=== PATIENT | female | born 1965 | race Caucasian/White ===

== ENCOUNTER → 2023-03-25 15:12 | Outpatient (REF) | payer BC, SELFPAY | LOC: WDC 15:12 | PROVIDERS: ATTENDING PHYSICIAN Family Medicine | DX: Z12.31 Encounter for screening mammogram for malignant neoplasm of breast (principal) | CPT/HCPCS: 77063; 77067 ==

== ENCOUNTER → 2023-05-03 08:07 | Outpatient (REF) | payer OTHER, SELFPAY | LOC: RCS 08:07 | PROVIDERS: ATTENDING PHYSICIAN Internal Medicine Cardiovascular Disease; FAMILY PHYSICIAN Family Medicine | DX: R07.89 Other chest pain (principal); I10 Essential (primary) hypertension | CPT/HCPCS: 93306 ==

== ENCOUNTER → 2023-05-16 06:45 | Outpatient (REF) | payer BC, OTHER, SELFPAY ==
[2023-05-16] MEDS: LEXISCAN 0.400000000000000022 MG IV (08:30)
[2023-05-16] MEDS: FLUSH (NSS) 1 FLUSH IV (08:30)
[2023-05-16] MEDS: AMINOPHYLLINE 75 MG IV (09:20)
== END ==
LOC: RCS 06:45
PROVIDERS: ATTENDING PHYSICIAN Internal Medicine Cardiovascular Disease
DX: R07.89 Other chest pain (principal); I10 Essential (primary) hypertension
CPT/HCPCS: 78452; 93017; A9500; J2785

== ENCOUNTER → 2023-09-26 08:10 | Outpatient (REF) | payer BC, OTHER, SELFPAY ==
[2023-09-26 09:00] LABS: % Basophils 0.4 % (0-2); % Immature Granulocytes 0.3 % (0-0.5); % Lymphocytes 34.4 % (20.5-51.1); % Neutrophils 53.9 % (42.2-75.2); Absolute Eosinophils 0.2 10^3/uL (0-0.7); Absolute Lymphocytes 2.5 10^3/uL (1.2-3.4); Absolute Monocytes 0.7 10^3/uL (0.1-0.6); Hematocrit 41.8 % (37.0-47.0); Hemoglobin 14.5 g/dL (12.0-16.0); Mean Corp Hgb Conc. 34.7 g/dL (33.0-37.0); Mean Corpuscular Hgb 31.3 pg (27.0-31.0); Mean Corpuscular Volume 90.1 fL (81.0-99.0); Mean Platelet Volume 10.5 fL (7.4-10.4); Nucleated Red Blood Cells % 0 %; Platelet Count 307 10^3/uL (130-400); Red Blood Cell Count 4.64 10^6/uL (4.20-5.40); Red Cell Dist. Width 12.3 % (11.5-14.5); White Blood Cell Count 7.4 10^3/uL (4.8-10.8)
[2023-09-26 09:38] LABS: ALT (SGPT) 16 U/L (0-35); AST (SGOT) 24 U/L (14-36); Albumin 4.5 g/dl (3.5-5.0); Alkaline Phosphatase 88 U/L (38-126); Blood Urea Nitrogen 21 mg/dl (7-17); Calcium 9.5 mg/dl (8.4-10.2); Carbon Dioxide 23 mmol/L (22-30); Chloride 105 mmol/L (98-107); Glucose 96 mg/dl (70-99); HDL Cholesterol 58 mg/dl; LDL Cholesterol, Calculated 108 mg/dl; Potassium 4.5 mmol/L (3.5-5.1); Sodium 138 mmol/L (135-145); Total Bilirubin 0.7 mg/dl (0.2-1.3); Total Cholesterol 189 mg/dl (50-199); Total Protein 6.7 g/dl (6.3-8.2); Triglyceride 116 mg/dl (10-149); Very Low Density Lipoprotein 23 mg/dl (0-30); eGFR > 60.00
== END ==
LOC: REG 08:10
PROVIDERS: ATTENDING PHYSICIAN Family Medicine
DX: Z00.00 Encounter for general adult medical examination without abnormal findings (principal)
CPT/HCPCS: 36415; 80053; 80061; 84443; 85025

== ENCOUNTER → 2023-10-07 07:06 | Outpatient (REF) | payer OTHER, BC, SELFPAY | LOC: PAVMRI 07:06 | PROVIDERS: ATTENDING PHYSICIAN Specialist; FAMILY PHYSICIAN Family Medicine | DX: M25.562 Pain in left knee (principal); Z98.890 Other specified postprocedural states | CPT/HCPCS: 73721 ==

== ENCOUNTER 2024-01-28 21:12 | Emergency (ER) | payer BC, SELFPAY ==
[2024-01-28 21:12] VITALS: BMI 33.1
[2024-01-28 21:18] VITALS: BP 137/89
--- NOTE | 2024-01-28 21:19 | ED.GENMED ---
ED Provider Triage
<Dionna Yun PA-C - Last Filed: 01/28/24 21:22>
-
Patient seen by provider in Triage?: Seen in Triage
Attestation: A medical screening examination has been initiated by a qualified medical provider. Based on the assessment performed at this time, it has been determined that an emergent medical condition may exist and the patient has been informed
that further medical evaluation and possible additional diagnostic testing may be needed.
HPI: 58yoF here with a cough since Friday. Also having burning chest pain. [place]merer a rumbling in her chest today. Seen by PCP on Friday and diagnosed with bronchitis. Currently on prednisone x 2 days.
GENERAL: Alert , in no apparent distress
EYE: No visual abnormalities.
NECK: Trachea midline
ENT: No visible abnormalities.
LUNGS: No acute respiratory distress
NEUROLOGICAL: Alert and oriented
SKIN: Skin intact. No visible changes.
MUSCULOSKELETAL: Moving extremities normally
PSYCH: Normal and appropriate interaction.
This is a medical evaluation conducted in person to initiate diagnostic evaluation and provide initial therapeutics. Please see further documentation by the treating clinician.
Cardiac labs, EKG, COVID/flu swab, and CXR ordered.
History of Present Illness
<Dionna Yun PA-C - Last Filed: 01/28/24 21:22>
General
Chief Complaint: Breathing Problem
Time Seen by Provider: 01/28/24 22:13
<Gumaro Ríos DO - Last Filed: 01/29/24 02:03>
General
Source: patient
Exam Limitations: none
History of Present Illness
History of Present Illness:
This is a 58-year-old female presents with persistent cough. The patient states has been ongoing for almost a week. She did see her primary care doctor who advised and prescribed a Medrol Dosepak. Patient states the cough that she has been
persistent. She states her breathing is mostly okay but at times coughing and makes her feel out of breath. No fevers. This. No sputum production. No leg swelling. Does have a history of asthma.
Past History
<GE Blevins-C - Last Filed: 01/28/24 21:22>
Past History
ED Past Medical History: Other (Tendinitis, sciatica)
ED Past Surgical History: Orthopedic
Social History
Tobacco: Non-smoker
Alcohol: None
Drug: None
Personal:
Living: with family
<Gumaro Ríos DO - Last Filed: 01/29/24 02:03>
Past History
ED Past Medical History: Asthma and HTN
ED Past Surgical History:
Phy Exam
<Gumaro Ríos DO - Last Filed: 01/29/24 02:03>
Physical Exam
Physical Exam:
CONSTITUTIONAL Patient alert and oriented to person, place and time. Well-appearing. Vital signs reviewed.
HEAD atraumatic, normocephalic.
EYES eyelids normal to inspection, Extraocular muscles intact, Conjunctiva normal, Sclera normal.
NECK normal range of motion, Trachea midline, no jugular venous distention.
RESPIRATORY CHEST No respiratory distress noted, Chest expansion equal, end expiratory wheezing noted.
CARDIOVASCULAR regular rate and rhythm, Heart sounds normal.
ABDOMEN abdomen nontender, Bowel sounds normal. No distention.
BACK normal inspection, no obvious deformities
UPPER EXTREMITY range of motion normal, Motor strength normal, no cyanosis, no edema.
LOWER EXTREMITY range of motion normal, Motor strength normal, no cyanosis, no edema.
NEURO Speech normal, No focal motor deficits, Greer coma scale 15, Memory normal, Cranial Nerves intact to screening exam.
SKIN skin warm, dry, and normal in color.
Scores
<Gumaro Ríos DO - Last Filed: 01/29/24 02:03>
Heart Failure Risk
Heart Failure Risk Score: Not Applicable
Course
<Dionna Yun PA-C - Last Filed: 01/28/24 21:22>
Orders/Labs/Results
Orders:
Orders
01/28/24 21:20
Electrocardiogram (*1) Urgent
Reason for Study: Chest Pain
EKG- Treatment ONCE
CR Chest - 2 Views Urgent
Comment:
Reason For Exam: Cough
01/28/24 21:28
COVID-19 Antigen Urgent
Source: Nasal Swab
Complete Blood Count/With Diff Urgent
Comprehensive Metabolic Panel Urgent
Troponin I Urgent
Influenza A+B Rapid Molecular Urgent
JOSE C Source: Nasal Swab
Specimen Description:
01/28/24 22:39
Ipratropium/Albuterol Sulfate [Duoneb] 3 ml INH R NOW ONE
Ipratropium/Albuterol Sulfate [Duoneb] 3 ml INH R NOW STA
Ipratropium/Albuterol Sulfate [Duoneb] 3 ml INH R NOW STA
01/29/24 01:44
Ipratropium/Albuterol Sulfate [Duoneb] 3 ml INH R NOW STA
01/29/24 01:48
Azithromycin [Zithromax] 500 mg PO NOW STA
Abnormal Lab Results
01/28/24
21:28
WBC 11.4 H 10^3/uL
(4.8-10.8)
MCH 31.5 H pg
(27.0-31.0)
Abs Immat Gran (auto) 0.1 H 10^3/uL
(0-0.05)
Absolute Neuts (auto) 8.9 H 10^3/uL
(1.4-6.5)
Absolute Monos (auto) 0.8 H 10^3/uL
(0.1-0.6)
Neutrophils % 78.5 H %
(42.2-75.2)
Lymphocytes % 13.9 L %
(20.5-51.1)
BUN 18 H mg/dl
(7-17)
Glucose 143 H mg/dl
(70-99)
AST 40 H U/L
(14-36)
ALT 52 H U/L
(0-35)
01/28/24 21:28
01/28/24 21:28
Vital Signs
Initial and Last Documented VS:
Initial Vital Signs
Temp Pulse Resp BP Pulse Ox
98.3 F 79 16 137/89 98
01/28/24 21:18 01/28/24 21:18 01/28/24 21:18 01/28/24 21:18 01/28/24 21:18
Last Documented Vital Signs
Temp Pulse Resp BP Pulse Ox
98.3 F 98 12 139/78 99
01/28/24 21:18 01/28/24 23:45 01/28/24 23:45 01/28/24 23:07 01/28/24 23:45
<Gumaro Ríos, - Last Filed: 01/29/24 02:03>
Orders/Labs/Results
Orders:
Orders
01/28/24 21:20
Electrocardiogram (*1) Urgent
Reason for Study: Chest Pain
EKG- Treatment ONCE
CR Chest - 2 Views Urgent
Comment:
Reason For Exam: Cough
01/28/24 21:28
COVID-19 Antigen Urgent
Source: Nasal Swab
Complete Blood Count/With Diff Urgent
Comprehensive Metabolic Panel Urgent
Troponin I Urgent
Influenza A+B Rapid Molecular Urgent
JOSE C Source: Nasal Swab
Specimen Description:
01/28/24 22:39
Ipratropium/Albuterol Sulfate [Duoneb] 3 ml INH R NOW ONE
Ipratropium/Albuterol Sulfate [Duoneb] 3 ml INH R NOW STA
Ipratropium/Albuterol Sulfate [Duoneb] 3 ml INH R NOW STA
01/29/24 01:44
Ipratropium/Albuterol Sulfate [Duoneb] 3 ml INH R NOW STA
01/29/24 01:48
Azithromycin [Zithromax] 500 mg PO NOW STA
Abnormal Lab Results
01/28/24
21:28
WBC 11.4 H 10^3/uL
(4.8-10.8)
MCH 31.5 H pg
(27.0-31.0)
Abs Immat Gran (auto) 0.1 H 10^3/uL
(0-0.05)
Absolute Neuts (auto) 8.9 H 10^3/uL
(1.4-6.5)
Absolute Monos (auto) 0.8 H 10^3/uL
(0.1-0.6)
Neutrophils % 78.5 H %
(42.2-75.2)
Lymphocytes % 13.9 L %
(20.5-51.1)
BUN 18 H mg/dl
(7-17)
Glucose 143 H mg/dl
(70-99)
AST 40 H U/L
(14-36)
ALT 52 H U/L
(0-35)
01/28/24 21:28
01/28/24 21:28
Vital Signs
Initial and Last Documented VS:
Initial Vital Signs
Temp Pulse Resp BP Pulse Ox
98.3 F 79 16 137/89 98
01/28/24 21:18 01/28/24 21:18 01/28/24 21:18 01/28/24 21:18 01/28/24 21:18
Last Documented Vital Signs
Temp Pulse Resp BP Pulse Ox
98.3 F 98 12 139/78 99
01/28/24 21:18 01/28/24 23:45 01/28/24 23:45 01/28/24 23:07 01/28/24 23:45
<Gumaro Ríos DO - Last Filed: 01/29/24 02:03>
MDM/Problems Addressed
Differential Diagnosis Includes:
Pneumonia, bronchitis, asthma exacerbation, CHF
MDM/Problems Addressed:
Acute asthma exacerbation, bronchitis
<DO Marsha Roberson Last Filed: 01/29/24 02:03>
*Radiology
Radiology exam reviewed: all reviewed NAD by ED Provider
*Pulse Oximetry
Patient hypoxic: no
*EKG
Interpreted by ED Provider?: Yes
Interpretation: normal
Rate: normal
Rhythm: sinus
[employer]: normal axis
QRS Pattern: normal QRS
Ischemia: no ischemia
*[employer] Interpretation
Rate: normal
Interpretation: normal
Rhythm: sinus
*Critical Care Note
Total Time (30-74mins, 75-104mins- exclusive of procedures): Not Applicable
Data Reviewed
Source: patient
Prescriptions/Medications Considered But Not Given:
Considered more aggressive antibiotics but suspect acute bronchitis. Cover with azithromycin
<Gumaro Ríos DO - Last Filed: 01/29/24 02:03>
Patient Management
Escalation/DeEscalation of care consider admission/obs:
On reassessment feels better with some end-expiratory wheezing. Noted to feel proved on reassessment. Patient is in his pulse ox remains 90%. I do think it is reasonable for outpatient management. Will add inhaled steroids and extend course of
steroids. In addition add azithromycin and nebulizer machine. Patient will be discharged with nebulizer machine as she felt the delivery was better than her inhaler. I did recommend close PCP follow-up
ED Attending Note
<Dionna Yun PA-C - Last Filed: 01/28/24 21:22>
-
Portions of this chart may have been created with voice recognition software.� Occasional wrong word or��sound alike� substitutions may have occurred due to the inherent limitations of voice recognition software.
Discharge Plan
Departure
Patient Disposition: Home (Routine Discharge)
Date of Disposition: 01/29/24
Time of Disposition: 01:44
Patient with high blood pressure during this ER visit?: No
Discharge Problem:
Acute bronchitis, Acute asthma exacerbation
Instructions: Asthma in adults, Acute Bronchitis, Adult (DC)
Prescriptions:
New
budesonide-formoterol [Symbicort] 160-4.5 mcg/actuation HFA aerosol inhaler
2 puff inhalation BID Qty: 10.2 0RF
prednisone 10 mg Tablet
See Rx Instructions .ROUTE .COMPLEX Qty: 30 0RF
Rx Instructions:
Take By Mouth:
40 mg daily x3 days, 30 mg daily x3 days,
20 mg daily x3 days, 10 mg daily x3 days.
albuterol sulfate 2.5 mg /3 mL (0.083 %) solution for nebulization
2.5 mg inhalation Q4H PRN (Reason: shortness of breath or wheezing) Qty: 90 0RF
azithromycin 250 mg tablet
250 mg PO DAILY 4 Days Qty: 4 0RF
No Action
multivitamin Tablet
1 tab PO DAILY
cyclobenzaprine 10 mg Tablet
10 mg PO TID PRN (Reason: back)
ascorbic acid (vitamin C) [Vitamin C] 1,000 mg Tablet
1,000 mg PO DAILY
lisinopril 20 mg Tablet
20 mg PO DAILY
tramadol 50 mg Tablet
50 mg PO Q4H PRN (Reason: discomfort)
fluticasone propionate [Flonase] 50 mcg/actuation [place],Suspension
1 spray INTRANASAL DAILY
levalbuterol tartrate [Xopenex HFA] 45 mcg/actuation Hfa Aerosol Inhaler
1 puff INHALATION Q6H PRN (Reason: asthma)
calcium carbonate-vitamin D3 [Calcium 600 + D(3)] 600 mg-10 mcg (400 unit) Tablet
2 tab PO DAILY
cholecalciferol (vitamin D3) [Vitamin D3] 125 mcg (5,000 unit) Tablet
125 mcg PO DAILY
weqtjdyo-ycqknu-bufsqtwe acid 500 mg-800 mcg- 50 mg Capsule
2 cap PO DAILY
acetaminophen [Tylenol] 325 mg Tablet
500 mg Q6H PRN (Reason: pain)
ibuprofen [Advil] 200 mg Tablet
400 mg PO Q8H PRN (Reason: pain)
Rx Instructions:
Patient takes 200mg-600 mg.
gabapentin 100 mg Capsule
100 mg PO DAILY PRN (Reason: pain)
Referrals:
Cathie Srivastava MD [Family Provider] -
Activity Restrictions/Additional Instructions:
Please see your doctor in the next 24 hours for follow-up and reevaluation. Return immediately for worsening symptoms, difficulty breathing, coughing up blood or any other concerns.
Interventions
Interventions:
*Risk Screen - Suicide Last Done: 01/28/24 21:18
*General Assessment Last Done: 01/28/24 23:20
*Neglect/Abuse Screening Last Done: 01/28/24 21:18
*ED COVID-19 Vaccine History Last Done: 01/28/24 23:20
ED- Cardiac Assessment Last Done: 01/28/24 23:23
ED- Pulmonary Assessment Last Done: 01/28/24 23:23
Discharge Date and Time
Print Language: POLISH
[2024-01-28 21:41] LABS: % Basophils 0.4 % (0-2); % Immature Granulocytes 0.4 % (0-0.5); % Lymphocytes 13.9 % (20.5-51.1); % Monocytes 6.8 % (1.7-9.3); % Neutrophils 78.5 % (42.2-75.2); Absolute Immature Granulocytes 0.1 10^3/uL (0-0.05); Absolute Lymphocytes 1.6 10^3/uL (1.2-3.4); Absolute Monocytes 0.8 10^3/uL (0.1-0.6); Absolute Neutrophils 8.9 10^3/uL (1.4-6.5); Hematocrit 41.4 % (37.0-47.0); Hemoglobin 14.1 g/dL (12.0-16.0); Mean Corp Hgb Conc. 34.1 g/dL (33.0-37.0); Mean Corpuscular Hgb 31.5 pg (27.0-31.0); Mean Corpuscular Volume 92.6 fL (81.0-99.0); Nucleated Red Blood Cells % 0 %; Platelet Count 295 10^3/uL (130-400); Red Blood Cell Count 4.47 10^6/uL (4.20-5.40); Red Cell Dist. Width 12.8 % (11.5-14.5); White Blood Cell Count 11.4 10^3/uL (4.8-10.8)
[2024-01-28 21:52] LABS: ALT (SGPT) 52 U/L (0-35); AST (SGOT) 40 U/L (14-36); Albumin 4.6 g/dl (3.5-5.0); Alkaline Phosphatase 124 U/L (38-126); Blood Urea Nitrogen 18 mg/dl (7-17); Calcium 9.2 mg/dl (8.4-10.2); Carbon Dioxide 23 mmol/L (22-30); Chloride 106 mmol/L (98-107); Glucose 143 mg/dl (70-99); Potassium 4.8 mmol/L (3.5-5.1); Sodium 136 mmol/L (135-145); Total Bilirubin 0.4 mg/dl (0.2-1.3); Total Protein 7.1 g/dl (6.3-8.2); eGFR > 60.00
[2024-01-28 21:53] LABS: COVID-19 Antigen Negative (Negative)
[2024-01-28 22:04] LABS: Troponin I < 0.012 ng/ml
[2024-01-28 22:17] VITALS: BP 128/68
[2024-01-28 23:07] VITALS: BP 139/78
[2024-01-28] MEDS: DUONEB 3 ML INH ×3 (23:09→23:34)
[2024-01-29] VITALS: BP 125/65
[2024-01-29 01:00] VITALS: BP 129/64
[2024-01-29 02:00] VITALS: BP 123/75
[2024-01-29] MEDS: ZITHROMAX 500 MG PO (02:03)
[2024-01-29] MEDS: DUONEB 3 ML INH (02:03)
== END 2024-01-29 02:23 | disposition home or self-care (01) ==
LOC: EMR 21:12
PROVIDERS: Physician Assistant; EMERGENCY PHYSICIAN Emergency Medicine; FAMILY PHYSICIAN Family Medicine
DX: J20.9 Acute bronchitis, unspecified (principal); J45.901 Unspecified asthma with (acute) exacerbation; R05.9 Cough, unspecified; R07.89 Other chest pain; I10 Essential (primary) hypertension
CPT/HCPCS: 99284; 94640; 71046; 80053; 84484; 85025; 87502; 87811; 93005

== ENCOUNTER → 2024-04-01 19:37 | Outpatient (REF) | payer BC, SELFPAY | LOC: WDC 19:37 | PROVIDERS: ATTENDING PHYSICIAN Family Medicine | DX: Z12.31 Encounter for screening mammogram for malignant neoplasm of breast (principal) | CPT/HCPCS: 77063; 77067 ==

== ENCOUNTER → 2024-04-24 07:48 | Outpatient (REF) | payer BC, SELFPAY ==
[2024-04-24 09:05] LABS: % Basophils 0.6 % (0-2); % Immature Granulocytes 0.3 % (0-0.5); % Lymphocytes 40.1 % (20.5-51.1); % Monocytes 8.2 % (1.7-9.3); % Neutrophils 50.8 % (42.2-75.2); Absolute Lymphocytes 2.5 10^3/uL (1.2-3.4); Absolute Monocytes 0.5 10^3/uL (0.1-0.6); Absolute Neutrophils 3.2 10^3/uL (1.4-6.5); Hematocrit 44.1 % (37.0-47.0); Hemoglobin 14.8 g/dL (12.0-16.0); Mean Corp Hgb Conc. 33.6 g/dL (33.0-37.0); Mean Corpuscular Hgb 31.5 pg (27.0-31.0); Mean Corpuscular Volume 93.8 fL (81.0-99.0); Mean Platelet Volume 10.4 fL (7.4-10.4); Nucleated Red Blood Cells % 0 %; Platelet Count 283 10^3/uL (130-400); Red Cell Dist. Width 12.6 % (11.5-14.5); White Blood Cell Count 6.3 10^3/uL (4.8-10.8)
[2024-04-24 09:26] LABS: Glycohemoglobin (HgbA1c) 5.2 % (4.0-5.6)
[2024-04-24 09:32] LABS: ALT (SGPT) 47 U/L (0-35); AST (SGOT) 38 U/L (14-36); Albumin 4.1 g/dl (3.5-5.0); Alkaline Phosphatase 100 U/L (38-126); Blood Urea Nitrogen 15 mg/dl (7-17); Calcium 9.5 mg/dl (8.4-10.2); Carbon Dioxide 28 mmol/L (22-30); Chloride 105 mmol/L (98-107); Glucose 98 mg/dl (70-99); Potassium 4.7 mmol/L (3.5-5.1); Sodium 138 mmol/L (135-145); Total Bilirubin 0.8 mg/dl (0.2-1.3); Total Protein 6.4 g/dl (6.3-8.2); eGFR > 60.00
[2024-04-24 09:56] LABS: TSH Reflex To Free T4 2.35 uIU/ml (0.47-4.68)
== END ==
LOC: REG 07:48
PROVIDERS: ATTENDING PHYSICIAN Family Medicine
DX: R79.89 Other specified abnormal findings of blood chemistry (principal); R73.09 Other abnormal glucose; I10 Essential (primary) hypertension
CPT/HCPCS: 36415; 80053; 83036; 84443; 85025

== ENCOUNTER → 2024-05-18 07:18 | Outpatient (REF) | payer BC, SELFPAY | LOC: RCS 07:18 | PROVIDERS: ATTENDING PHYSICIAN Physician Assistant; FAMILY PHYSICIAN Family Medicine | DX: R07.89 Other chest pain (principal); I10 Essential (primary) hypertension; R06.09 Other forms of dyspnea | CPT/HCPCS: 93306 ==

== ENCOUNTER → 2024-09-22 07:31 | Outpatient (REF) | payer BC, SELFPAY ==
[2024-09-22 08:18] LABS: Hematocrit 42.2 % (37.0-47.0); Hemoglobin 14.2 g/dL (12.0-16.0); Mean Corp Hgb Conc. 33.6 g/dL (33.0-37.0); Mean Corpuscular Volume 95.3 fL (81.0-99.0); Nucleated Red Blood Cells % 0 %; Platelet Count 271 10^3/uL (130-400); Red Cell Dist. Width 12.7 % (11.5-14.5)
[2024-09-22 09:39] LABS: ALT (SGPT) 27 U/L (0-35); AST (SGOT) 26 U/L (14-36); Albumin 4.3 g/dl (3.5-5.0); Alkaline Phosphatase 96 U/L (38-126); Blood Urea Nitrogen 15 mg/dl (7-17); Calcium 9.1 mg/dl (8.4-10.2); Carbon Dioxide 23 mmol/L (22-30); Chloride 111 mmol/L (98-107); Glucose 95 mg/dl (70-99); HDL Cholesterol 60 mg/dl; LDL Cholesterol, Calculated 98 mg/dl; Potassium 4.3 mmol/L (3.5-5.1); Sodium 141 mmol/L (135-145); Total Protein 6.4 g/dl (6.3-8.2); Very Low Density Lipoprotein 22 mg/dl (0-30); eGFR > 60.00
[2024-09-22 09:41] LABS: Vitamin B12 566 pg/ml (239-931)
[2024-09-22 14:53] LABS: Glycohemoglobin (HgbA1c) 4.8 % (4.0-5.6)
== END ==
LOC: REG 07:31
PROVIDERS: ATTENDING PHYSICIAN Family Medicine
DX: Z00.00 Encounter for general adult medical examination without abnormal findings (principal); R73.09 Other abnormal glucose; R79.9 Abnormal finding of blood chemistry, unspecified; R53.83 Other fatigue
CPT/HCPCS: 36415; 80053; 80061; 82607; 83036; 84443; 85025

== ENCOUNTER → 2025-01-03 07:24 | Outpatient (REF) | payer BC, SELFPAY ==
[2025-01-03 09:25] LABS: Free T3 3.53 pg/ml (2.77-5.27)
[2025-01-03 09:39] LABS: TSH 2.63 uIU/ml (0.47-4.68)
== END ==
LOC: REG 07:24
PROVIDERS: ATTENDING PHYSICIAN Internal Medicine Endocrinology, Diabetes & Metabolism; FAMILY PHYSICIAN Family Medicine
DX: E05.20 Thyrotoxicosis with toxic multinodular goiter without thyrotoxic crisis or storm (principal)
CPT/HCPCS: 36415; 84439; 84443; 84481

== ENCOUNTER → 2025-01-18 07:00 | Outpatient (REF) | payer BC, SELFPAY | LOC: RAD 07:00 | PROVIDERS: ATTENDING PHYSICIAN Internal Medicine Endocrinology, Diabetes & Metabolism; FAMILY PHYSICIAN Family Medicine | DX: E04.2 Nontoxic multinodular goiter (principal) | CPT/HCPCS: 76536 ==

== ENCOUNTER → 2025-02-01 17:35 | Outpatient (REF) | payer BC, SELFPAY | LOC: CLAB 17:35 | PROVIDERS: ATTENDING PHYSICIAN Emergency Medicine | DX: R39.9 Unspecified symptoms and signs involving the genitourinary system (principal) | CPT/HCPCS: 87086 ==